=== PATIENT | male | born 1935 | race Caucasian/White ===

== ENCOUNTER → 2017-10-16 | Outpatient (CLI) | payer MEDICARE ==
[~2017-10-16] MED LIST: ATOR80 PO; CEFD300 PO; CENTRUM SILVER1 EAC2 PO; Coumadin5 MG PO; DOXY100 PO; FOLI400 PO; HYDR1TAB94 PO; OMEP40CA12 PO; Prednisone10 MG PO; Prilosec Otc20 MG PO; VALS80 PO; WARF5 PO
== END | disposition home or self-care (01) ==
LOC: LAB EV 07:30
DX: J45.909 Unspecified asthma, uncomplicated (principal)
CPT/HCPCS: 87070; 87205

== ENCOUNTER 2018-01-26 15:35 | Observation (INO) | payer OTHER, MEDICARE ==
[~2018-01-26] VITALS: Ht 172.7 cm; Wt 85.0 kg
[2018-01-27 04:31] LABS: BASOPHILS ABSOLUTE AUTO 0.04 K/mm3 (0.00-0.23); BASOPHILS PERCENT AUTO 1 % (0-2); EOSINOPHILS ABSOLUTE AUTO 0.14 K/mm3 (0.00-0.68); EOSINOPHILS PERCENT AUTO 2 % (0-6); Hematocrit 31.2 % (37.0-53.0); Hemoglobin 10.1 g/dL (13.5-17.5); IMMATURE GRAN ABSOLUTE AUTO 0.04 K/mm3 (0.00-0.10); IMMATURE GRAN PERCENT AUTO 1 % (0-1); LYMPHOCYTES PERCENT AUTO 26 % (21-46); MONOCYTES ABSOLUTE AUTO 1.18 K/mm3 (0.16-1.47); MONOCYTES PERCENT AUTO 16 % (4-13); Mean Corpuscular HGB 29.7 pg (26.0-34.0); Mean Corpuscular HGB Conc 32.4 g/dL (31.5-36.5); Mean Corpuscular Volume 92 fL (80-100); Mean Platelet Volume 9.2 fL (9.1-12.4); NEUTROPHILS PERCENT AUTO 55 % (41-73); Platelet Count 244 K/mm3 (150-400); RDW Standard Deviation 50.2 fL (35.1-46.3)
[2018-01-27 04:51] LABS: Magnesium, Blood 1.9 mg/dL (1.6-2.4)
[2018-01-27 04:54] LABS: Alanine Aminotransfer (ALT/SGP 44 U/L (12-78); Albumin, Blood 2.1 g/dL (3.4-5.0); Albumin/Globulin Ratio 0.4 (0.8-1.8); Alk Phos 83 U/L (50-136); Anion Gap 11 mmol/L (6-16); Aspartate Aminotrans (AST/SGOT 41 U/L (12-37); Bilirubin, Total 0.4 mg/dL (0.1-1.0); Blood Urea Nitrogen 30 mg/dL (8-24); Bun/Creatinine Ratio 28.3 (12.0-20.0); CO2, Blood 24 mmol/L (21-32); Calcium, Blood 8.8 mg/dL (8.5-10.1); Chloride, Blood 106 mmol/L (98-108); Creatinine, Blood 1.06 mg/dL (0.60-1.20); Globulin, Blood 5.4 g/dL (2.2-4.0); Glomerular Filtration Rate >60 (60-); Glucose, Blood 105 mg/dL (70-99); Phosphorus, Blood 2.7 mg/dL (2.5-4.9); Potassium, Blood 4.1 mmol/L (3.5-5.5); Sodium, Blood 141 mmol/L (136-145); Total Protein, Blood 7.5 g/dL (6.4-8.2)
[2018-01-28 10:00] LABS: International Normalized Ratio 1.11; Prothrombin Time Results 11.4 Sec (9.7-11.5)
[2018-01-29 12:27] LABS: Automated BF WBC Count 0.196 K/mm3 (0-999); Body Fluid WBC Count 196 /mm3 (0-999)
[2018-01-29 12:48] LABS: Protein, Body Fluid 4.5 g/dL
[2018-01-29 12:49] LABS: Appearance, Body Fluid Hazy (Clear); Color, Body Fluid Yellow (None-Yellow); RBC Count, Body Fluid 37 /mm3 (0-0)
[2018-01-29 13:03] LABS: Lactate Dehydrogenase, Body Fl 3045 U/L
[2018-01-29] MEDS ORDERED: CEFD300 PO (13:55)
[2018-01-29 15:05] LABS: Total Cell Count, Body Fluid 100
== END 2018-01-29 17:32 | disposition home health service (06) ==
LOC: PCU 15:35 → MEDS 15:36 → PCU 15:36 → MEDS 01-27 17:15 → ENPENDDIS 01-29 14:18 → MEDS 01-29 17:32
PROVIDERS: Hospitalist; Internal Medicine Hematology & Oncology; Internal Medicine Pulmonary Disease
DX: C45.0 Mesothelioma of pleura (principal); D63.0 Anemia in neoplastic disease; J90 Pleural effusion, not elsewhere classified; J98.19 Other pulmonary collapse; I10 Essential (primary) hypertension; E29.1 Testicular hypofunction; I12.9 Hypertensive chronic kidney disease with stage 1 through stage 4 chronic kidney disease, or unspecified chronic kidney disease; N18.9 Chronic kidney disease, unspecified; N17.9 Acute kidney failure, unspecified; G93.41 Metabolic encephalopathy; G47.33 Obstructive sleep apnea (adult) (pediatric); Z86.010 Personal history of colon polyps; Z79.899 Other long term (current) drug therapy; Z85.46 Personal history of malignant neoplasm of prostate
CPT/HCPCS: 32555; 36415; 71260; 76604; 80053; 83615; 83735; 84100; 84157; 85025; 85610; 85730; 87070; 88108; 88305; 89051; 96372; 97162; 97530; G0378; G8978; G8979; J1650; Q9967

== ENCOUNTER → 2018-01-26 | Outpatient (CLI) | payer MEDICARE ==
[~2018-01-26] MED LIST changes: -CEFD300 PO
[2018-01-26 14:33] LABS: BASOPHILS ABSOLUTE AUTO 0.04 K/mm3 (0.00-0.23); BASOPHILS PERCENT AUTO 0 % (0-2); EOSINOPHILS ABSOLUTE AUTO 0.17 K/mm3 (0.00-0.68); EOSINOPHILS PERCENT AUTO 2 % (0-6); Hematocrit 34.9 % (37.0-53.0); Hemoglobin 11.6 g/dL (13.5-17.5); IMMATURE GRAN ABSOLUTE AUTO 0.05 K/mm3 (0.00-0.10); IMMATURE GRAN PERCENT AUTO 1 % (0-1); LYMPHOCYTES ABSOLUTE AUTO 2.35 K/mm3 (0.84-5.20); LYMPHOCYTES PERCENT AUTO 25 % (21-46); MONOCYTES ABSOLUTE AUTO 1.18 K/mm3 (0.16-1.47); MONOCYTES PERCENT AUTO 13 % (4-13); Mean Corpuscular HGB 30.7 pg (26.0-34.0); Mean Corpuscular HGB Conc 33.2 g/dL (31.5-36.5); Mean Corpuscular Volume 92 fL (80-100); Mean Platelet Volume 9.3 fL (9.1-12.4); NEUTROPHILS ABSOLUTE AUTO 5.63 K/mm3 (1.96-9.15); NEUTROPHILS PERCENT AUTO 60 % (41-73); Platelet Count 282 K/mm3 (150-400); RDW Coefficient Variation 15.3 % (11.7-14.2); RDW Standard Deviation 51.5 fL (35.1-46.3); Red Blood Cell Count 3.78 M/mm3 (4.30-5.90); White Blood Cell Count 9.42 K/mm3 (4.00-11.30)
[2018-01-26 14:41] LABS: Albumin, Blood 2.6 g/dL (3.4-5.0); Albumin/Globulin Ratio 0.5 (0.8-1.8); Bilirubin, Total 0.4 mg/dL (0.1-1.0); Bun/Creatinine Ratio 25.5 (12.0-20.0); Calcium, Blood 9.3 mg/dL (8.5-10.1); Creatinine, Blood 1.53 mg/dL (0.60-1.20); Globulin, Blood 5.6 g/dL (2.2-4.0); Potassium, Blood 4.3 mmol/L (3.5-5.5); Total Protein, Blood 8.2 g/dL (6.4-8.2)
== END ==
LOC: LAB EV 14:27 → LAB SHORT 14:27
PROVIDERS: Emergency Medicine
DX: R41.82 Altered mental status, unspecified (principal)
CPT/HCPCS: 80053; 85025